=== PATIENT | female | born 1970 ===

== ENCOUNTER 2018-01-22 13:51 | Outpatient (CLI) | payer OTHER ==
--- NOTE | 2018-01-25 13:50 | Mammography Report ---
BILATERAL DIGITAL SCREENING MAMMOGRAM WITH CAD:01/22/18 00:00:00 CLINICAL: Baseline screening. FINDINGS: The breasts are entirely fatty.No mass, architectural distortion or suspicious calcifications. IMPRESSION: No mammographic evidence of malignancy. BI-RADS CATEGORY: 1 -- Negative RECOMMENDATION: Routine mammographic screening in one year. ACR BI-RADS MAMMOGRAPHIC CODES: 0 = Needs additional imaging evaluation; 1 = Negative; 2 = Benign; 3 = Probably benign; 4 = Suspicious; 5 = Malignant; 6 = Known biopsy-proven malignancy COMMENT: 1. Dense breast tissue, i.e., adenosis, fibrocystic changes, etc., may obscure an underlying neoplasm. 2. Approximately 10% of cancers are not detected with mammography. 3. A negative mammography report should not delay biopsy if a clinically suspicious mass is present.
== END 2018-01-22 13:52 | disposition home or self-care (01) ==
LOC: SPVWC 13:51
PROVIDERS: ATTEND Advanced Practice Midwife
DX: Z12.31 Encounter for screening mammogram for malignant neoplasm of breast (principal)
CPT/HCPCS: 77067